=== PATIENT | male | born 1990 | race Two or more races ===

== ENCOUNTER 2017-08-14 17:11 | Emergency (ER) | payer SELFPAY ==
[~2017-08-14] VITALS: Ht 190.5 cm; Wt 88.5 kg
[2017-08-14 18:17] LABS: BILIRUBIN,URINE NEGATIVE (NEGATIVE); KETONES,URINE NEGATIVE (NEGATIVE); LEUKOCYTE ESTERASE ,URINE NEGATIVE (NEGATIVE); NITRITE,URINE NEGATIVE (NEGATIVE); PROTEIN,URINE DIPSTICK NEGATIVE (NEGATIVE); URINE UROBILINOGEN 0.2 mg/dL (0.2 - 1)
[2017-08-14 18:19] LABS: CLARITY,URINE CLEAR (CLEAR); COLOR,URINE YELLOW (YELLOW)
[2017-08-14 18:40] LABS: EPITHELIAL CELLS,URINE RARE /LPF
[2017-08-14 18:41] LABS: RBC,URINE 0-5 /HPF (0-5); WBC,URINE (MAN) 0-5 /HPF (0-5)
--- NOTE | 2017-08-14 18:52 | Diagnostic Imaging Report ---
EXAM: Scrotal Ultrasound with Duplex INDICATION: \S\Right testicular pain, fever, rule out torsion, tumor etc COMPARISON: None TECHNIQUE: Transverse and longitudinal images were obtained of the scrotum with grayscale imaging, color Doppler and spectral waveform analysis. FINDINGS: Right testis: Size: 2.7 x 3.1 x 1.8 cm, normal in size. Echogenicity: Normal Mass/Cysts: 2 x 1.5 x 1.6 cm heterogeneous echotexture hypervascular mass. Left testis: Size: 3 x 1.7 x 2.8 cm, normal in size. Echogenicity: Normal Mass/Cysts: None Epididymis: Appearance: Normal in size without increased vascularity. Mass/Cysts: None Extratesticular: Masses: None Hydrocele: None Varicocele: None Doppler: Normal arterial flow to both testes and symmetrical flow on color Doppler evaluation is seen. No evidence of testicular torsion. IMPRESSION: 1. No evidence of testicular torsion. 2. 2 cm heterogeneous echotexture right testicular mass, concerning for malignancy. Signed by: Dr. Kvng Mackey MD on 08/14/2017 6:48 PM
[2017-08-14 19:55] VITALS: BP 127/72
== END 2017-08-14 20:06 | disposition home or self-care (01) ==
LOC: ER 17:11
DX: N50.9 Disorder of male genital organs, unspecified (principal)
CPT/HCPCS: 76870; 81001; 87086; 93976; 99283

== ENCOUNTER 2018-02-05 15:19 | Emergency (ER) | payer SELFPAY ==
[~2018-02-05] VITALS: Ht 190.5 cm; Wt 104.3 kg
[2018-02-05] MEDS ORDERED: SODIUM CHLORIDE 0.9% 1000ML 1,000 ML IV STA (15:59)
[2018-02-05] MEDS ORDERED: ONDANSETRON HCL INJ 2 MG/ML VIAL IV STA (15:59)
[2018-02-05] MEDS ORDERED: MORPHINE SULFATE INJ 4 MG/ML INJ IV STA (15:59)
[2018-02-05 16:29] LABS: BASOPHILS % 0.2 % (0.0-1.0); HEMATOCRIT 47.4 % (38.2-49.6); HEMOGLOBIN 15.5 g/dL (14.0-18.0); LYMPHOCYTES # (AUTO) 1.8 (1.0-3.2); LYMPHOCYTES % 12.8 % (18.0-39.1); MEAN CORPUSCULAR HEMOGLOBIN 26.7 pg (28-32); MEAN CORPUSCULAR HGB CONC 32.7 g/dL (31-35); MEAN CORPUSCULAR VOLUME 81.6 fL (81-99); MONOCYTES # (AUTO) 1.8 (0.2-0.8); MONOCYTES % 12.5 % (4.4-11.3); NEUTROPHILS # (AUTO) 10.5 (2.1-6.9); NEUTROPHILS % 74.1 % (38.7-80.0); PLATELET COUNT 195 x10e3/uL (140-360); RED BLOOD COUNT 5.81 x10e6/uL (4.3-5.7)
[2018-02-05 16:45] LABS: ALBUMIN 4.1 g/dL (3.5-5.0); ALBUMIN/GLOBULIN RATIO 0.9 (0.8-2.0); ANION GAP 16.8 mmol/L (8-16); CALCIUM 9.5 mg/dL (8.4-10.2); CREATININE, SERUM 1.43 mg/dL (0.72-1.25); POTASSIUM 3.8 mmol/L (3.5-5.1)
[2018-02-05 16:51] LABS: CREATINE KINASE MB 0.2 ng/mL (0-5.0)
[2018-02-05] MEDS ORDERED: SODIUM CHLORIDE 0.9% 1000ML 1,000 ML IV SCH (17:15)
[2018-02-05 17:32] LABS: CLARITY,URINE CLOUDY (CLEAR); COLOR,URINE OTHER (YELLOW)
[2018-02-05 17:33] LABS: BILIRUBIN,URINE NEGATIVE (NEGATIVE); KETONES,URINE TRACE (NEGATIVE); LEUKOCYTE ESTERASE ,URINE NEGATIVE (NEGATIVE); NITRITE,URINE NEGATIVE (NEGATIVE); PROTEIN,URINE DIPSTICK TRACE (NEGATIVE); URINE UROBILINOGEN 0.2 mg/dL (0.2 - 1)
[2018-02-05 17:40] LABS: LYMPHOCYTES % (MANUAL) 8 % (19-48); MONOCYTES % (MANUAL) 8 % (3.4-9.0); NEUTROPHILS % (MANUAL) 82 % (40-74); PLATELET ESTIMATE ADEQUATE; PLATELET MORPHOLOGY COMMENT NORMAL; RBC MORPHOLOGY COMMENT NORMAL
[2018-02-05 17:45] LABS: AMORPHOUS SEDIMENT,URINE MANY (FEW); BACTERIA,URINE MANY /HPF
--- NOTE | 2018-02-05 17:59 | Diagnostic Imaging Report ---
EXAM: CT Abdomen and Pelvis WITH contrast INDICATION: \S\FLANK PAIN \S\[id number] \S\[id number] COMPARISON: Scrotal ultrasound dated 08/14/2017 TECHNIQUE: Abdomen and pelvis were scanned utilizing a multidetector helical scanner from the lung base to the pubic symphysis after administration of IV contrast. Coronal and sagittal reformations were obtained. Routine protocol was performed. Scan was performed when during portal venous phase. IV CONTRAST: 100 mL of Isovue-370 ORAL CONTRAST: Water COMPLICATIONS: None RADIATION DOSE: Total DLP: 650.22 mGy*cm Estimated effective dose: (DLP x 0.015 x size factor) mSv CTDIvol has been reviewed. It is below the limits set by the Radiation Protocol Committee (RPC). FINDINGS: LINES and TUBES: None. LOWER THORAX: 4 mm groundglass left lower lobe nodule (series 2, image 2). Dependent atelectasis. HEPATOBILIARY: No focal hepatic lesions. No biliary ductal dilation. GALLBLADDER: No radio-opaque stones or sludge. No wall thickening. SPLEEN: No splenomegaly. PANCREAS: No focal masses or ductal dilatation. ADRENALS: No adrenal nodules KIDNEYS/URETERS: Kidneys enhance symmetrically. No hydronephrosis. No cystic or solid mass lesions. No stones. GI TRACT: No abnormal distention, wall thickening, or evidence of bowel obstruction. Appendix is normal. PELVIC ORGANS/BLADDER: Unremarkable. LYMPH NODES: Ill-defined retroperitoneal lesion in the aortocaval region, measuring approximately 4 x 3.9 cm (series 2 image 46, series 301 image 48) with surrounding fat stranding/edema. Subtle peripheral enhancement is seen on coronal images. This lesion is inseparable and exerts mass effect on the IVC (series 2, image 44). VESSELS: Unremarkable. PERITONEUM / RETROPERITONEUM: No free air or fluid. BONES: Right superior acetabular and right iliac sclerotic foci, likely bone islands. SOFT TISSUES: Unremarkable. IMPRESSION: 1. Ill-defined retroperitoneal aortocaval lesion, measuring approximately 4 cm, inseparable from IVC. Differentials include a metastatic lymph node, an abscess, or retroperitoneal hematoma. An abscess is favored, considering subtle peripheral enhancement and surrounding inflammation. Dr. Ann was notified at 5:54 PM, on 02/05/2018. Signed by: Dr. Kvng Mackey MD on 02/05/2018 5:55 PM
[2018-02-05] MEDS ORDERED: CEFTRIAXONE SOD 1 GM VIAL IM ONE (18:30)
[2018-02-05] MEDS ORDERED: CEFTRIAXONE SOD 1 GM VIAL IV NR (18:45)
[2018-02-05] MEDS ORDERED: CEFTRIAXONE SOD 1 GM VIAL IV ONE (18:45)
[2018-02-05] MEDS ORDERED: MORPHINE SULFATE 2 MG/ML SYR IV STA (19:26)
[2018-02-05] MEDS ORDERED: SODIUM CHLORIDE 0.9% 50ML 50 ML ONE (19:43)
[2018-02-05] MEDS ORDERED: IOPAMIDOL 370 MG/ML 200 ML INFUS..BTL INJ ONE (19:43)
== END 2018-02-05 20:04 | disposition other institution (70) ==
LOC: ER 15:19
DX: R50.9 Fever, unspecified (principal); R30.0 Dysuria; R10.9 Unspecified abdominal pain; N23 Unspecified renal colic
CPT/HCPCS: 36415; 74177; 80053; 81001; 82550; 82553; 83605; 83690; 84484; 85025; 87040; 87086; 96375; 99284; J0696; J2270 ×2; J2405; J7030; Q9967